=== PATIENT | female | born 1980 | race Caucasian/White ===

== ENCOUNTER 2019-11-16 06:18 | Inpatient (IN) | payer OTHER ==
[~2019-11-16] VITALS: Ht 162.6 cm; Wt 67.5 kg
[~2019-11-16 06:18] MED LIST: ACETAMINOPHEN 500 MG TAB PO ONE; CELE100C PO; CELE10TA; CLINDAMYCIN 900 MG in IV 1 EA IV ONE; CRANBERRY; CVS1CAP2 PO; D5W IV ONE; GABAPENTIN 300 MG CAP PO ONE; GENTAMICIN IV ONE; LR 1,000 ML IV ONE; LUNE3TAB36 PO; MULTCAP PO; NIFE90TA20 PO; PRENTAB8; Probiotics; VIIB20TA PO; VITA100T59 PO; XANA1TAB2 PO
[2019-11-16 06:57] LABS: HEMATOCRIT 43.3 % (36.0-47.0); HEMOGLOBIN 14.7 g/dl (12.0-15.5); MEAN CORPUSCULAR HEMOGLOBIN 30.9 pg (27.0-33.0); MEAN CORPUSCULAR HGB CONC 33.9 g/dl (32.0-36.5); PLATELET COUNT, AUTOMATED 213 10^3/uL (150-450); RED BLOOD COUNT 4.76 10^6/uL (4.00-5.40); WHITE BLOOD COUNT 9.6 10^3/uL (4.0-10.0)
[2019-11-16] MEDS ORDERED: SILVER NITRATE APPLICATOR As Ordered ONE (07:11)
[2019-11-16] MEDS ORDERED: BUPIVACAINE HCL 0.25% 30ML VIAL As Ordered ONE (07:11)
[2019-11-16] MEDS ORDERED: MIDAZOLAM INJ 2MG/2ML VIAL (J2250 PER 1MG) As Ordered ONE (07:27)
[2019-11-16] MEDS ORDERED: ROCURONIUM BROMIDE 50 MG/5 ML VIAL As Ordered ONE ×2 (07:27→08:18)
[2019-11-16] MEDS ORDERED: propofoL 200 MG/20 ML VIAL As Ordered ONE (07:27)
[2019-11-16] MEDS ORDERED: LIDOCAINE 2% 100MG/5ML SDV (FOR ANES.) As Ordered ONE (07:27)
[2019-11-16] MEDS ORDERED: fentaNYL 250 MCG/5 ML INJECTION (J3010) As Ordered ONE (07:27)
[2019-11-16] MEDS ORDERED: ACETAMINOPHEN 1000MG 100ML IV BTL (OFIRMEV) (J0131 PER 10MG) As Ordered ONE (07:28)
[2019-11-16] MEDS ORDERED: KETOROLAC 60MG 2ML VIAL As Ordered ONE (07:28)
[2019-11-16] MEDS ORDERED: ONDANSETRON 4MG/2ML VIAL As Ordered ONE (07:28)
[2019-11-16] MEDS ORDERED: dexameTHASONE 4 MG/ML 1ML VIAL (J1100 PER 1MG) As Ordered ONE (07:28)
[2019-11-16] MEDS ORDERED: SUGAMMADEX SODIUM 500 MG/5 ML VIAL (BRIDION) As Ordered ONE (08:32)
[2019-11-16] MEDS ORDERED: LACRILUBE (AKWA TEARS) OPHTH OINT 3.5 GM As Ordered ONE (08:37)
[2019-11-16] MEDS ORDERED: LR 1,000 ML IV SCH ×2 (10:14→11:00)
[2019-11-16] MEDS ORDERED: PERCOCET 5MG/325MG TAB PO PRN (10:15)
[2019-11-16] MEDS ORDERED: oxyCODONE 5MG TAB PO PRN ×2 (10:15→11:00)
[2019-11-16] MEDS ORDERED: ONDANSETRON 4MG/2ML VIAL IV PRN (11:00)
[2019-11-16] MEDS ORDERED: fentaNYL 100 MCG/2 ML INJECTION (J3010) IV PRN (11:00)
[2019-11-16 13:00] VITALS: BP 107/66
[2019-11-16 14:00] VITALS: BP 110/72
[2019-11-16 15:00] VITALS: BP 111/72
[2019-11-16 16:00] VITALS: BP 112/73
[2019-11-16] MEDS ORDERED: KETOROLAC 30 MG/ML 1ML VIAL IV SCH (16:00)
--- NOTE | 2019-11-16 16:42 | DS.PDOC ---
Discharge Summary General Date of Admission Nov 16, 2019 at 06:18 Date of Discharge 11/16/19 Attending Physician: LISA AREVALO DO Discharge Summary PROCEDURES PERFORMED DURING STAY: 1. Total Laparoscopic hysterectomy 2. Left ovarian cystectomy 3. Cystoscopy ADMITTING DIAGNOSES: 1. Abnormal uterine bleeding 2. Left ovarian cyst DISCHARGE DIAGNOSES: 1. Post operative COMPLICATIONS/CHIEF COMPLAINT: Abnormal Uterine Bleeding, Left Ovarian Cyst. HOSPITAL COURSE: Patient admitted to medical surgical unit for postoperative care. Patient tolerating po, urinating and ambulating without problem. Patient meets discharge criteria evening of post operative day. DISCHARGE MEDICATIONS: Filled At [place] ALLERGIES: Please see below. PHYSICAL EXAMINATION ON DISCHARGE: VITAL SIGNS: Please see below. GENERAL: NAD ABDOMINAL EXAMINATION: nd, soft, appropriately tender around incision site. EXTREMITIES: no edema/erythema/tenderness PROGNOSIS: good ACTIVITY: As tolerated. vaginal rest until cleared by provider. DIET: regular DISCHARGE PLAN: f/u with Dr. Arevalo in 2 weeks post op. DISPOSITION: stable DISCHARGE INSTRUCTIONS: 1. Vaginal rest until cleared by provider 2. Do not scrub at incision site, dermabond will come off on its own. 3. No heavy lifting or strenuous activity for 6wks DISCHARGE CONDITION: Stable. TIME SPENT ON DISCHARGE: Greater than 30 minutes. Vital Signs/I&Os Vital Signs Date Time Temp Pulse Resp B/P (MAP) Pulse Ox O2 Delivery O2 Flow Rate FiO2 11/16/19 07:18 97.7 69 18 103/58 (73) 99 Room Air Laboratory Data Labs 24H Laboratory Tests 2 11/16/19 06:36: Nucleated Red Blood Cells % (auto) 0.0, Human Chorionic Gonadotropin, Quant < 1.0 CBC/BMP Laboratory Tests 11/16/19 06:36 Discharge Medications Scheduled Alprazolam (Xanax) 1 Mg Tablet, 1 MG PO TID, (Reported) Ascorbic Acid (Vitamin C) 100 Mg Tablet, 500 MG PO BID, (Reported) Celecoxib (Celebrex) 100 Mg Capsule, 100 MG PO BID, (Reported) Eszopiclone (Lunesta) 3 Mg Tablet, 3 MG PO QHS, (Reported) Lactobacillus Combo No.10 (Probiotic) 1 Each Capsule, 1 CAP PO DAILY, (Reported) Multivitamin (Multivitamins) 1 Each Capsule, 1 CAP PO DAILY, (Reported) Nifedipine (Nifedipine ER) 90 Mg Tablet.er, 60 MG PO QHS, (Reported) Vilazodone HCl (Viibryd) 20 Mg Tablet, 20 MG PO DAILY, (Reported) Allergies Coded Allergies: Penicillins (Verified Allergy, Intermediate, hives, 11/16/19) amoxicillin (Verified Allergy, Intermediate, hives, 11/16/19) LISA AREVALO DO Nov 16, 2019 10:41
--- NOTE | 2019-11-16 16:58 | POST-OPPD ---
Postoperative Procedure Note Date Of Procedure: Nov 16, 2019 PREOPERATIVE DIAGNOSIS: 1. Abnormal uterine bleeding 2. left ovarian cyst POSTOPERATIVE DIAGNOSIS: margot FINDINGS: normal appearing uterus and right ovary. left ovary with small blood filled ovarian cyst. Bilateral fallopian tube s/p tubal occlusion. PROCEDURE: 1. Total laparoscopic hysterectomy 2. Left ovarian cystectomy 3. Cystoscopy SURGEON: Lisa Arevalo DO [employer] ACTIVITIES CLERK: Charles Beauchamp MD ANESTHESIA: General SPECIMENS: uterus and cervix, left ovarian cyst ESTIMATED BLOOD LOSS: 200cc REPLACED: 1100cc DRAINS: 200cc urine COMPLICATIONS: none POSTOPERATIVE CONDITION: stable Detailed Description of procedure: The risks, benefits, indicationsand alternatives of the procedure were reviewed with the patient and informed consent was obtained. The patient was taken to the operating room with IV running. Patient induced for general anesthesia. Examine under anesthesia reveals anteverted uterus, palpable adnexal mass on left side. Arms tucked, patient placed in lithotomy position. The abdomen, vagina and perineum were prepped and draped in the usual sterile fashion. A speculum was placed into the vagina and the cervix identified. [facility] tenaculum grasp anterior cervix. Medium VCare uterine manipulator placed. Wu placed. Umbilical incision made. Veres needle used to enter the abdomen. Saline drop test verified intra-abdominal placement. Abdomen insufflate with CO2. Direct entry using 5mm trocar and 5mm scope entered without problem. One 5mm port placed on the right lower quadrant under direct visualization. Two more 5mm port placed in the left lower quadrant under direct visualization. Abdomen was examined found to have no injuries. Normal appearing uterus. Normal appearing right ovary. Left ovary with blood filled cyst. Bilateral fallopian tubes status post ligation at mid ithmus portion, no abnormal lesion in pelvis. Ligasure device used throughout case for seal and cut. Left Utero- Ovarian ligament grasp, coagulate and cut. Left round ligament grasp, coagulated and cut. Dissection directed caudally to include the broad ligament. Anterior broad ligament dissected towards bladder flap. Uterine pedicles caut erized. Steps repeated for right side. Uterine pedicles ligated. Bladder flap created as right anterior broad ligament dissected to meet left side. Rest of broad ligament dissected caudally to vaginal cervical junction. Vcare cup identified and colpotomy created posteriorly using monopolar device. Vaginal/cervical junction circumfrentially cut. Uterus now free to be removed from intraabdominal cavity. Left ovarian cyst Removed. Uterus, cervix and left ovarian cyst removed vaginally. The vaginal cuff closed horizontally with 2-0 180 V-lock suture. Evaluation of pelvic using laparoscopic camera shows surgical area hemostatic. Wu removed. Cystoscopy using 70 degree scope revealed normal appearing bladder mucosa with bilateral ureteral jets. Wu replaced after cystoscope. The pelvis and abdomen reexamined. Surgical area hemostatic. Gas allowed to escape and abdomen was desuflated. All ports removed. Skin closed with suture and dermabond Sponge and instruments count correct x 2. Patient was taken out of OR in stable condition. LISA AREVALO DO Nov 16, 2019 10:36
[2019-11-16] MEDS ORDERED: DOCUSATE SODIUM 100 MG CAP PO SCH (21:00)
== END 2019-11-16 16:50 | disposition home or self-care (01) | DRG 743 ==
LOC: M OR 06:18 → M MS5PR 12:50
PROVIDERS: ADMIT Obstetrics & Gynecology; ATTEND Obstetrics & Gynecology
PROC: 0UTC4ZZ Resection of Cervix, Percutaneous Endoscopic Approach (ICD-10-PCS; 2019-11-16)
PROC: 0UB14ZZ Excision of Left Ovary, Percutaneous Endoscopic Approach (ICD-10-PCS; 2019-11-16)
PROC: 0TJB8ZZ Inspection of Bladder, Via Natural or Artificial Opening Endoscopic (ICD-10-PCS; 2019-11-16)
PROC: 0UT94ZZ Resection of Uterus, Percutaneous Endoscopic Approach (ICD-10-PCS; principal; 2019-11-16 07:30)
DX: N92.0 Excessive and frequent menstruation with regular cycle (principal); F41.9 Anxiety disorder, unspecified; F32.9 Major depressive disorder, single episode, unspecified; I73.00 Raynaud's syndrome without gangrene; Z88.0 Allergy status to penicillin; Z79.899 Other long term (current) drug therapy; N83.12 Corpus luteum cyst of left ovary

== ENCOUNTER 2019-12-03 17:45 | Emergency (ER) | payer OTHER ==
[~2019-12-03 17:45] MED LIST changes: -ACETAMINOPHEN 500 MG TAB PO ONE; -CLINDAMYCIN 900 MG in IV 1 EA IV ONE; -D5W IV ONE; -GABAPENTIN 300 MG CAP PO ONE; -GENTAMICIN IV ONE; -LR 1,000 ML IV ONE
[2020-01-16 17:27] LABS: BASO # 0.1 10^3/uL (0.0-0.2); BASO % 0.5 % (0.0-1.0); EOS # 0.1 10^3/uL (0.0-0.5); EOS % 1.1 % (0.0-3.0); HEMATOCRIT 43.8 % (36.0-47.0); HEMOGLOBIN 14.9 g/dl (12.0-15.5); LYMPH # 2.7 10^3/uL (1.5-5.0); MEAN CORPUSCULAR HEMOGLOBIN 30.9 pg (27.0-33.0); MEAN CORPUSCULAR VOLUME 90.9 fl (80.0-96.0); MONO # 0.7 10^3/uL (0.0-0.8); MONO % 6.8 % (0.0-5.0); NEUTROPHILS # 6.8 10^3/uL (1.5-8.5); NEUTROPHILS % 65.1 % (36.0-66.0); PLATELET COUNT, AUTOMATED 276 10^3/uL (150-450); RED BLOOD COUNT 4.82 10^6/uL (4.00-5.40); WHITE BLOOD COUNT 10.4 10^3/uL (4.0-10.0)
--- NOTE | 2020-01-31 09:31 | HPE ---
DATE OF ADMISSION: 12/03/2019 This lady is a 39-year-old 3, para 3, abortio 1, who has a history of anxiety and depression. She had a laparoscopic-assisted vaginal hysterectomy and cystoscopy 11/16/2019. She was sitting in a chair, got up, and a gash of blood per vagina. She came in with some moderate amount of old blood with clots. Subsequent to that she has had minimal amount of bleeding. PAST SURGICAL HISTORY: 1. Laparoscopic tubal. 2. Dilatation and curettage (D and C) for spontaneous . She is on multiple medications, Lunesta, nifedipine, Celebrex, Xanax, and Viibryd. Hemodynamically she is stable, 123/60, respirations 15, pulse 82, temperature 97.4. Hemoglobin 14.9, hematocrit 43.8, platelets are 276, white count 10.3. She has no pain. On examination, no acute distress. On pelvis examination, the vault is clean. There is some old blood. There is some irritation affecting the left vaginal apex area. There is no actual active pumping bleeding at the present time. No tenderness on poking the vaginal wall. The possibility of the left angle having popped a suture may be entertained, and she may have had a residual filling of vagina. Our plan of management presently is to have her walk around, review her pad in half an hour. If there is no evidence of real active bleeding, she will see us in the office on Friday. Now that she has the parameters of bleeding, if there is any acute pumping she is to come back immediately. Pelvic rest was instilled upon her. Our discharge is pending evaluation of her vagina and her pad in half and hour's time. ASHLEY
[2020-02-21 11:45] LABS: ALBUMIN 4.3 GM/DL (3.2-5.2); ALT/SGPT 19 U/L (12-78); BILIRUBIN,DIRECT < 0.1 MG/DL (0.0-0.2); BILIRUBIN,TOTAL 0.4 MG/DL (0.2-1.0); BLOOD UREA NITROGEN 18 MG/DL (7-18); CALCIUM LEVEL 9.2 MG/DL (8.5-10.1); CARBON DIOXIDE LEVEL 27 MEQ/L (21-32); CHLORIDE LEVEL 108 MEQ/L (98-107); CREATININE FOR GFR 0.65 MG/DL (0.55-1.30); GLOMERULAR FILTRATION RATE > 60.0 (>60); GLUCOSE, FASTING 78 MG/DL (70-100); LIPASE 109 U/L (73-393); POTASSIUM SERUM 4.3 MEQ/L (3.5-5.1); SODIUM LEVEL 140 MEQ/L (136-145); TOTAL PROTEIN 7.7 GM/DL (6.4-8.2)
== END 2019-12-03 20:15 | disposition home or self-care (01) ==
LOC: M ED 17:45
DX: N99.820 Postprocedural hemorrhage of a genitourinary system organ or structure following a genitourinary system procedure (principal); F33.9 Major depressive disorder, recurrent, unspecified; F41.9 Anxiety disorder, unspecified; I73.00 Raynaud's syndrome without gangrene; Z88.1 Allergy status to other antibiotic agents; Z88.0 Allergy status to penicillin; Z79.899 Other long term (current) drug therapy

== ENCOUNTER → 2020-05-13 | Outpatient (CLI) | payer SELFPAY | LOC: M LABSMTC 11:12 | PROVIDERS: ATTEND Pediatrics | DX: Z20.822 Contact with and (suspected) exposure to COVID-19 (principal) ==

== ENCOUNTER → 2020-06-05 | Outpatient (REF) | payer OTHER ==
[2020-06-05 14:23] LABS: THYROID PEROXIDASE ANTIBODY 31.2 U/ML (<60.0)
[2020-06-06 12:08] LABS: SSA SJOGRENS A <0.2 AI (0.0-0.9); SSB SJOGRENS B <0.2 AI (0.0-0.9)
== END ==
LOC: M SFHCRHEU 10:12
PROVIDERS: ATTEND Internal Medicine
DX: R76.8 Other specified abnormal immunological findings in serum (principal); H04.123 Dry eye syndrome of bilateral lacrimal glands

== ENCOUNTER → 2024-03-16 | Outpatient (CLI) | payer OTHER ==
[~2024-03-16] MED LIST changes: -LUNE3TAB36 PO; +LUNE3TAB50 PO; -NIFE90TA20 PO; +NIFE90TA46 PO
== END ==
LOC: M WHC 14:59
PROVIDERS: ATTEND Nurse Practitioner Primary Care
DX: Z12.31 Encounter for screening mammogram for malignant neoplasm of breast (principal)

== ENCOUNTER → 2024-04-06 | Outpatient (CLI) | payer OTHER | LOC: M WHC 12:40 | PROVIDERS: ATTEND Nurse Practitioner Primary Care | DX: Z12.31 Encounter for screening mammogram for malignant neoplasm of breast (principal) ==

== ENCOUNTER → 2025-02-12 | Outpatient (REF) | payer OTHER | LOC: M WUC 18:58 | PROVIDERS: ATTEND Physician Assistant Medical | DX: R30.0 Dysuria (principal) ==